=== PATIENT | male | born 1990 | race Caucasian/White ===

== ENCOUNTER 2018-07-10 11:45 | Emergency (ER) | payer BC ==
--- NOTE | 2018-07-10 12:15 | EDPHY ---
H & P Stated Complaint: Intermittent generalized abdominal pain x 2 days Time Seen by Provider: 07/10/18 12:00 HPI/ROS: CHIEF COMPLAINT: Intermittent abdominal pain HISTORY OF PRESENT ILLNESS: The patient is a 28-year-old man who is currently asymptomatic but complains of intermittent diffuse abdominal pain. He states that it hurts most at night and he has had difficulty sleeping. By morning however symptoms have resolved. He has not noticed and associations with food. No vomiting or nausea. No diarrhea. No constipation. No excess gas or belching. He does not feel distended. He states that the pain is rumbling throughout his entire abdomen and is not in 1 particular spot. No testicular pain or involvement. No difficulty urinating pain and no back pain. No trauma. He has not tried taking any medications. Severity: Moderate Modifying factors: Resolved REVIEW OF SYSTEMS: Constitutional: denies: chills, fever, recent illness, recent injury EENTM: denies: blurred vision, double vision, nose congestion Respiratory: denies: cough, shortness of breath Cardiac: denies: chest pain, irregular heart rate, lightheadedness, palpitations Gastrointestinal/Abdominal: The see HPI Genitourinary: denies: dysuria, frequency, hematuria, pain Musculoskeletal: denies: joint pain, muscle pain Skin: denies: lesions, rash, jaundice, bruising Neurological: denies: headache, numbness, paresthesia, tingling, dizziness, weakness Hematologic/Lymphatic: denies: blood clots, easy bleeding, easy bruising Immunologic/allergic: denies: HIV/AIDS, transplant 10 systems reviewed and negative except as noted EXAM: GENERAL: Well-appearing, well-nourished and in no acute distress. HEAD: Atraumatic, normocephalic. EYES: Pupils equal round and reactive to light, extraocular movements intact, sclera anicteric, conjunctiva are normal. ENT: TMs normal, nares patent, oropharynx clear without exudates. Moist mucous membranes. NECK: Normal range of motion, supple without lymphadenopathy or JVD. LUNGS: Breath sounds clear to auscultation bilaterally and equal. No wheezes rales or rhonchi. HEART: Regular rate and rhythm without murmurs, rubs or gallops. ABDOMEN: Soft, nontender, normoactive bowel sounds. No guarding, no rebound. No masses appreciated. BACK: No CVA tenderness, no spinal tenderness, step-offs or deformities EXTREMITIES: Normal range of motion, no pitting or edema. No clubbing or cyanosis. NEUROLOGICAL: Cranial nerves II through XII grossly intact. Normal speech, normal gait. 5/5 strength, normal movement in all extremities, normal sensation , normal reflexes PSYCH: Normal mood, normal affect. SKIN: Warm, dry, normal turgor, no visible rashes or lesions. Source: Patient Exam Limitations: No limitations - Personal History Current Tetanus Diphtheria and Acellular Pertussis (TDAP): Yes Tetanus Vaccine Date: within 10 years - Medical/Surgical History Hx Asthma: No Hx Chronic Respiratory Disease: No Hx Diabetes: No Hx Cardiac Disease: No Hx Renal Disease: No Hx Cirrhosis: No Hx Alcoholism: No Hx HIV/AIDS: No Hx Splenectomy or Spleen Trauma: No Other PMH: Denies - Family History Significant Family History: No pertinent family hx - Social History Smoking Status: Never smoked Alcohol Use: None Constitutional: Initial Vital Signs Temperature (C) 36.7 C 07/10/18 11:56 Heart Rate 68 07/10/18 11:56 Respiratory Rate 16 07/10/18 11:56 Blood Pressure 141/82 H 07/10/18 11:56 O2 Sat (%) 97 07/10/18 11:56 O2 Delivery Mode Room Air Allergies/Adverse Reactions: No Known Allergies Allergy (Verified 07/10/18 11:56) Home Medications: Medication Instructions Recorded NK [No Known Home Meds] 07/10/18 Medical Decision Making ED Course/Re-evaluation: The patient is currently asymptomatic and has a nontender abdominal exam. He states that his symptoms have worsened at night for the last 2 nights. He cannot think of any association with food or position etc. He denies heartburn symptoms. No blood in his stool. We discussed options and I offered to obtain lab work and CT scan of his abdomen for generalized abdominal pain workup although there are no specific signs pointing towards appendicitis or biliary disease or peptic ulcer disease etc. We discussed possible food allergies. He has been trying to alternate his diet. He states that he has had similar problems in the past that have resolved spontaneously. We engaged in shared decision making and at this point the patient decided not to perform testing at this time and to return this evening if his symptoms returned. He will return sooner if they worsen. He understands that we cannot rule out appendicitis, perforation etc without any testing. He will take [id number] pain medication. He is not feel nauseous and does not wish to have an Zofran prescription. He states that he originally went to urgent care hoping that they would say something similar to this but they referred him to the ER because they did not have the capability to do tests for abdominal pain. Differential Diagnosis: Partial list of the Differential diagnosis considered include but were not limited to; gastroenteritis, gas, and although unlikely based on the history and physical exam, I also considered peptic ulcer disease, biliary disease, appendicitis, obstruction, ischemia. I discussed these differential diagnoses and the plan with the patient as well as the usual and expected course. The patient understands that the diagnosis is provisional and that in medicine we are not always correct and that further workup is often warranted. Usual and customary warnings were given. All of the patient's questions were answered. The patient was instructed to return to the emergency department should the symptoms at all worsen or return, otherwise to followup with the physician as we discussed. Departure - Departure Disposition: Home, Routine, Self-Care Clinical Impression: Abdominal pain Qualifiers: Abdominal location: generalized Qualified Code(s): R10.84 - Generalized abdominal pain Condition: Fair Instructions: Abdominal Pain (ED) Additional Instructions: Take Tylenol this evening for pain. Return to the emergency department immediately if the pain returns or becomes severe or you develop a fever. Referrals: NONE *PRIMARY CARE P,. [Primary Care Provider] - As per Instructions Tamara Lubin MD [Medical Doctor] - 2-3 days, call for appt. ED,PHYSICIAN GABRIELE [Medical Doctor] - 1 day, if not improved
[2018-07-10 12:20] VITALS: BP 119/79
== END 2018-07-10 12:17 | disposition home or self-care (01) ==
LOC: CED 11:45
DX: R10.84 Generalized abdominal pain (principal)
CPT/HCPCS: 99282-ER